=== PATIENT | female | born 1940 | race Caucasian/White ===

== ENCOUNTER 2021-03-23 22:12 | Inpatient (IN) ==
[2021-03-23] MEDS ORDERED: HYDROmorphone 2 MG/1 ML VIAL IV STA (22:35)
[2021-03-23] MEDS ORDERED: SODIUM CHLORIDE 0.9% 500 ML IV STA (22:35)
[2021-03-23] MEDS ORDERED: ONDANSETRON 4 MG/2 ML VIAL IV STA (22:35)
[2021-03-23 23:32] LABS: Basophils % 0.2 % (0.0-0.8); Eosinophils % 0.3 % (0.00-10.9); Hematocrit 34.7 VOL% (35.7-47.0); Hemoglobin 11.7 GM/DL (12.0-16.0); Immature Granulocytes % 0.5 %; Immature Granulocytes Absolute 0.03 #; Lymphocytes # 1.9 10*3/uL (1.4-4.0); Lymphocytes % 32.3 % (21.3-54.2); Mean Corpuscular HGB Conc 33.7 GM/DL (32-36); Mean Corpuscular Volume 96.7 FL (87-102); Mean Platelet Volume 11.4 FL (9.6-12.0); Monocytes % 8.9 % (1.7-12.7); Neutrophils % 57.8 % (38.7-73.9); Platelet Count 141 T/CUMM (130-400); Red Blood Count 3.59 MC/CUMM (3.8-5.5); Red Cell Distribution Width 11.9 % (9.3-17.3)
[2021-03-23 23:41] LABS: PT Patient Result 10.9 SECS (10.5-12.0)
[2021-03-23 23:56] LABS: Troponin I < 0.015 NG/ML (0.00-0.045)
[2021-03-23 23:58] LABS: Albumin 3.8 G/DL (3.4-5.0); Bilirubin,Total 1.3 MG/DL (0.2-1.0); Calcium 8.6 MG/DL (8.5-10.1); Osmolality,Calculated 278.7 MOS/KG (273-304); Potassium 3.8 MMOL/L (3.5-5.1); Total Protein 6.4 G/DL (6.4-8.2)
[2021-03-24] MEDS ORDERED: SODIUM CHLORIDE 0.9% 1,000 ML IV SCH (01:46)
[2021-03-24] MEDS ORDERED: MAGNESIUM HYDROXIDE SUSP 30 ML UDCUP PO PRN ×2 (01:46→10:58)
[2021-03-24] MEDS ORDERED: ONDANSETRON 4 MG/2 ML VIAL IV PRN (01:46)
[2021-03-24 02:21] LABS: Basophils % 0.1 % (0.0-0.8); Eosinophils % 0.1 % (0.00-10.9); Hematocrit 32.1 VOL% (35.7-47.0); Hemoglobin 10.9 GM/DL (12.0-16.0); Immature Granulocytes % 0.3 %; Immature Granulocytes Absolute 0.03 #; Lymphocytes # 1.1 10*3/uL (1.4-4.0); Mean Corpuscular Volume 96.1 FL (87-102); Mean Platelet Volume 11.3 FL (9.6-12.0); Monocytes % 4.7 % (1.7-12.7); Neutrophils % 81.8 % (38.7-73.9); Platelet Count 133 T/CUMM (130-400); Red Blood Count 3.34 MC/CUMM (3.8-5.5); Red Cell Distribution Width 11.9 % (9.3-17.3); White Blood Count 8.8 T/CUMM (4-12)
[2021-03-24 02:30] LABS: Albumin 3.4 G/DL (3.4-5.0); Bilirubin,Total 0.9 MG/DL (0.2-1.0); Potassium 4.1 MMOL/L (3.5-5.1); Total Protein 6.3 G/DL (6.4-8.2)
[2021-03-24] MEDS: HYDROmorphone 2 MG/1 ML VIAL IV PRN ×3 (02:39→09:16)
[2021-03-24 09:14] LABS: Bilirubin,Urine Negative (Negative); Blood, Urine Small mg/dL (Negative); Glucose,Urine (UA) Negative (Negative); Ketones,Urine Negative (Negative); Mucus,Urine Occasional /LPF (Occasional); Nitrite,Urine Negative (Negative); Protein,Urine Negative; RBC,Urine 8 /HPF (0-4); Urine Appearance CLEAR (Clear); Urine Color Yellow (Yellow); Urine Specific Gravity 1.016 (1.001-1.035); Urine Urobilinogen < 2.0 EU/DL (0.2-1.0)
[2021-03-24] MEDS ORDERED: ROPIVACAINE 0.5% 30 ML VIAL ONE (09:59)
[2021-03-24] MEDS ORDERED: DEXMEDETOMIDINE 200 MCG/2 ML VIAL ONE (09:59)
[2021-03-24] MEDS ORDERED: KETAMINE 500 MG/10 ML VIAL ONE (09:59)
[2021-03-24] MEDS ORDERED: DEXAMETHASONE 4 MG/1 ML VIAL ONE ×2 (09:59→11:11)
[2021-03-24] MEDS ORDERED: propofoL 200 MG/20 ML VIAL IV ONE (10:18)
[2021-03-24] MEDS ORDERED: ONDANSETRON 4 MG/2 ML VIAL ONE (10:18)
[2021-03-24] MEDS ORDERED: ePHEDrine 50 MG/ML VIAL ONE (10:56)
[2021-03-24] MEDS ORDERED: diphenhydrAMINE CAP 25 MG CAPSULE PO PRN (10:58)
[2021-03-24] MEDS ORDERED: MORPHINE 4 MG/1 ML VIAL IV PRN ×2 (10:58→11:34)
[2021-03-24] MEDS ORDERED: PROMETHAZINE 25 MG/1 ML VIAL IM PRN (10:58)
[2021-03-24] MEDS ORDERED: BISACODYL 10 MG SUPP RECTAL PRN (10:58)
[2021-03-24] MEDS ORDERED: KETOROLAC 30 MG/1 ML VIAL ONE (11:56)
[2021-03-24] MEDS ORDERED: SEVOFLURANE 1 UNIT/15 MINUTE INH ONE (11:56)
[2021-03-24] MEDS ORDERED: LACTATED RINGERS 2,000 ML IV ONE (12:05)
[2021-03-24] MEDS: ATORVASTATIN 20 MG TABLET PO SCH (21:17)
[2021-03-24] MEDS: atenoloL 25 MG TABLET PO SCH (21:17)
[2021-03-25] MEDS: FONDAPARINUX 2.5 MG/0.5 ML SYRINGE SUBCUT SCH (05:09)
[2021-03-25 06:00] LABS: Hematocrit 23.2 VOL% (35.7-47.0); Hemoglobin 8.1 GM/DL (12.0-16.0); Immature Granulocytes % 0.2 %; Immature Granulocytes Absolute 0.01 #; Lymphocytes % 16.4 % (21.3-54.2); Mean Corpuscular HGB Conc 34.9 GM/DL (32-36); Mean Corpuscular Volume 95.1 FL (87-102); Mean Platelet Volume 11.5 FL (9.6-12.0); Monocytes % 9.7 % (1.7-12.7); Neutrophils % 73.7 % (38.7-73.9); Platelet Count 94 T/CUMM (130-400); Red Blood Count 2.44 MC/CUMM (3.8-5.5); Red Cell Distribution Width 11.9 % (9.3-17.3); White Blood Count 6.3 T/CUMM (4-12)
[2021-03-25 06:22] LABS: Albumin 2.7 G/DL (3.4-5.0); Bilirubin,Total 1.3 MG/DL (0.2-1.0); Calcium 7.7 MG/DL (8.5-10.1); Osmolality,Calculated 266.2 MOS/KG (273-304); Potassium 4.6 MMOL/L (3.5-5.1); Total Protein 5.3 G/DL (6.4-8.2)
[2021-03-25] MEDS ORDERED: NON-FORMULARY MEDICATION (Biotin 5,000 mcg Tablet, Sublingual) SL SCH (09:00)
[2021-03-25] MEDS: OMEGA 3 ACID ETHYL ESTERS 1 GM CAPSULE PO SCH (09:22)
[2021-03-25] MEDS: CALCIUM (CARBONATE) 500 MG TABLET PO SCH (09:22)
[2021-03-25] MEDS: MULTIVITAMIN (CENTRUM) TABLET PO SCH (09:22)
[2021-03-25] MEDS: ESCITALOPRAM 10 MG TABLET PO SCH (09:23)
[2021-03-25] MEDS: LACTULOSE 20 GM/30 ML UDCUP PO PRN (09:23)
[2021-03-25] MEDS: ATORVASTATIN 20 MG TABLET PO SCH (20:48)
[2021-03-25] MEDS: atenoloL 25 MG TABLET PO SCH (20:48)
[2021-03-26 05:23] LABS: Eosinophils % 0.5 % (0.00-10.9); Hematocrit 23.6 VOL% (35.7-47.0); Immature Granulocytes % 0.2 %; Immature Granulocytes Absolute 0.01 #; Lymphocytes # 1.9 10*3/uL (1.4-4.0); Lymphocytes % 28.6 % (21.3-54.2); Mean Corpuscular HGB Conc 33.9 GM/DL (32-36); Mean Corpuscular Volume 95.5 FL (87-102); Mean Platelet Volume 12.2 FL (9.6-12.0); Monocytes % 9.6 % (1.7-12.7); Neutrophils % 61.1 % (38.7-73.9); Platelet Count 102 T/CUMM (130-400); Red Blood Count 2.47 MC/CUMM (3.8-5.5); White Blood Count 6.6 T/CUMM (4-12)
[2021-03-26 05:41] LABS: Calcium 8.1 MG/DL (8.5-10.1); Osmolality,Calculated 268.2 MOS/KG (273-304); Potassium 4.3 MMOL/L (3.5-5.1)
[2021-03-26] MEDS: FONDAPARINUX 2.5 MG/0.5 ML SYRINGE SUBCUT SCH (06:18)
[2021-03-26] MEDS: CALCIUM (CARBONATE) 500 MG TABLET PO SCH (07:59)
[2021-03-26] MEDS: ESCITALOPRAM 10 MG TABLET PO SCH (08:00)
[2021-03-26] MEDS: OMEGA 3 ACID ETHYL ESTERS 1 GM CAPSULE PO SCH (08:00)
[2021-03-26] MEDS: MULTIVITAMIN (CENTRUM) TABLET PO SCH (08:01)
[2021-03-26] MEDS: atenoloL 25 MG TABLET PO SCH (21:08)
[2021-03-26] MEDS: ATORVASTATIN 20 MG TABLET PO SCH (21:08)
[2021-03-27] MEDS: FONDAPARINUX 2.5 MG/0.5 ML SYRINGE SUBCUT SCH (05:47)
[2021-03-27] MEDS: LACTULOSE 20 GM/30 ML UDCUP PO PRN (05:50)
[2021-03-27 07:15] VITALS: BP 154/69
[2021-03-27] MEDS: MULTIVITAMIN (CENTRUM) TABLET PO SCH (08:38)
[2021-03-27] MEDS: CALCIUM (CARBONATE) 500 MG TABLET PO SCH (08:38)
[2021-03-27] MEDS: ESCITALOPRAM 10 MG TABLET PO SCH (08:38)
[2021-03-27] MEDS: OMEGA 3 ACID ETHYL ESTERS 1 GM CAPSULE PO SCH (08:38)
[2021-03-27 08:41] LABS: Basophils % 0.2 % (0.0-0.8); Eosinophils # 0.1 10*3/uL (0.0-0.87); Eosinophils % 1.1 % (0.00-10.9); Hematocrit 24.9 VOL% (35.7-47.0); Hemoglobin 8.4 GM/DL (12.0-16.0); Immature Granulocytes % 0.4 %; Immature Granulocytes Absolute 0.02 #; Lymphocytes # 1.8 10*3/uL (1.4-4.0); Lymphocytes % 33.7 % (21.3-54.2); Mean Corpuscular HGB Conc 33.7 GM/DL (32-36); Mean Corpuscular Volume 96.1 FL (87-102); Mean Platelet Volume 11.5 FL (9.6-12.0); Neutrophils % 55.6 % (38.7-73.9); Platelet Count 128 T/CUMM (130-400); Red Blood Count 2.59 MC/CUMM (3.8-5.5); Red Cell Distribution Width 12.5 % (9.3-17.3); White Blood Count 5.3 T/CUMM (4-12)
[2021-03-27 09:01] LABS: Albumin 2.9 G/DL (3.4-5.0); Bilirubin,Total 0.7 MG/DL (0.2-1.0); Calcium 8.7 MG/DL (8.5-10.1); Osmolality,Calculated 277.7 MOS/KG (273-304); Potassium 3.7 MMOL/L (3.5-5.1)
== END 2021-03-27 09:50 | DRG 481 ==
LOC: N.ED 22:12 → N.EDINP 23:20 → N.3E 03-24 00:56
PROVIDERS: ADMIT Orthopaedic Surgery; ATTEND Orthopaedic Surgery